=== PATIENT | male | born 1995 | race Asian ===

== ENCOUNTER 2016-05-10 20:35 | Emergency (ER) | payer OTHER ==
[~2016-05-10] VITALS: Ht 177.8 cm; Wt 83.8 kg
[2016-05-10 20:47] VITALS: Ht 177.8 cm; Wt 83.8 kg
[2016-05-10] MEDS ORDERED: SODIUM CHLORIDE 0.9% 1000ML 2,000 ML IV STA (21:29)
[2016-05-10] MEDS ORDERED: KETOROLAC TROMETHAMINE 30 MG/ML VIAL IV STA (21:29)
[2016-05-10] MEDS ORDERED: DiphenhydrAMINE HCL 50 MG/ML VIAL IV STA (21:29)
[2016-05-10] MEDS ORDERED: ACETAMINOPHEN 500 MG TAB PO STA (21:29)
[2016-05-10] MEDS ORDERED: METOCLOPRAMIDE HCL INJ 5 MG/ML 2 ML VIAL IV STA (21:29)
[2016-05-10] MEDS ORDERED: OSELTAMIVIR PHOSPHATE 75 MG CAP PO STA (21:52)
[2016-05-10 21:59] LABS: BASO % 0.1 %; BASO ABS # 0.01 K/uL (0-0.2); COMPLETE YES; EOS % 0.3 %; HEMATOCRIT 47.9 % (42-52); IG% 0.1 %; LYMPH % 9.7 %; LYMPH ABS # 0.69 K/uL (1.2-3.4); MEAN CORPUSCULAR HEMOGLOBIN 27.1 pg (25-34); MEAN CORPUSCULAR HGB CONC 34.2 g/dl (32-36); MONO % 10.6 %; NEUT % 79.2 %; PLATELET COUNT 162 K/uL (130-400); RED BLOOD COUNT 6.06 M/uL (4.7-6.1); WHITE BLOOD COUNT 7.08 K/uL (4.8-10.8)
[2016-05-10 22:15] LABS: BUN/CREATININE RATIO 9.3 (10-20); CALCIUM 9.4 mg/dl (8.5-10.1); CREATININE 1.2 mg/dl (0.60-1.40); POTASSIUM 3.6 mmol/L (3.5-5.1)
[2016-05-10] MEDS ORDERED: OSEL75CA12 PO (22:28)
[2016-05-10] MEDS ORDERED: ALBUTEROL HFA 8 GM INHALER INH STA (22:33)
[2016-05-10 22:52] VITALS: BP 127/64; PULSE 108; TEMP 37.4; O2SAT 97
--- NOTE | 2016-05-11 05:10 | EMERGENCY ROOM VISIT NOTE ---
History First contact with patient: 21:24 Chief Complaint: FEVER Stated Complaint: FEVER History of Present Illness The patient is a 20 year old male who presents to the Emergency Room with complaints of Fever, chills, myalgias, arthralgias for the past day. Patient denies chest pain, dyspnea, abdominal pain, neck stiffness, sore throat, abdominal pain, vomiting, diarrhea. He is tolerating by mouth fluids but has a decreased appetite. No flu shot. No cold medicines today. Review of Systems See HPI for pertinent positives & negatives. A total of 10 systems reviewed and were otherwise negative. Past Medical/Surgical History None Social History Smoking Status: Never Smoker Smokeless Tobacco Use: No Alcohol Use: none Drug Use: none Occupation Status: [employer] student Current/Historical Medications Scheduled Oseltamivir (Tamiflu), 75 MG PO BID Allergies Coded Allergies: No Known Allergies (Unverified , 05/10/16) Physical Exam Vital Signs Date Time Temp Pulse Resp B/P Pulse Ox O2 Delivery O2 Flow Rate FiO2 05/10/16 22:52 37.4 108 18 127/64 97 05/10/16 20:47 39.4 122 18 143/80 96 Room Air Pain Rating (0-10): 0 Physical Exam VITALS: Vitals are noted on the nurse's note and reviewed by myself. Vital signs febrile GENERAL: Pleasant male, in no acute distress, nondiaphoretic, well-developed well-nourished. SKIN: The skin was without rashes, erythema, edema, or bruising. There is no tenting of the skin. Capillary reflex less than 2 seconds. HEAD: Normocephalic atraumatic. EARS: External auditory canals clear, tympanic membranes pearly simms without erythema or effusion bilaterally. EYES: Pupils equal round and reactive to light and accommodation. Conjunctivae without injection, sclerae without icterus. Extraocular movements intact. NOSE: Patent, turbinates without inflammation or discharge. No sinus tenderness. MOUTH: Mucous membranes mildly dry Pharynx without erythema or exudate. Uvula midline. Airway patent. Tongue does not deviate. NECK: Supple without nuchal rigidity. No lymphadenopathy. No thyromegaly. Cervical spine is nontender. No JVD. No meningeal signs HEART: Regular rate and rhythm without murmurs gallops or rubs. LUNGS: Clear to auscultation bilaterally without wheezes, rales or rhonchi. No dullness to percussion. No retractions or accessory muscle use. ABDOMEN: Positive bowel sounds x 4. Normal tympanic percussion. Soft, nontender, without masses or organomegaly. Quan sign negative. No guarding or rebound tenderness. MUSCULOSKELETAL: No muscle atrophy, erythema, or edema noted. NEURO: Patient was alert and oriented to person place and time. Normal sensation to light and sharp touch. No focal neurological deficits. Medical Decision & Procedures Laboratory Results 05/10/16 21:50 Red Blood Count 6.06, Mean Corpuscular Volume 79.0, Mean Corpuscular Hemoglobin 27.1, Mean Corpuscular Hemoglobin Concent 34.2, Mean Platelet Volume 10.0, Neutrophils (%) (Auto) 79.2, Lymphocytes (%) (Auto) 9.7, Monocytes (%) (Auto) 10.6, Eosinophils (%) (Auto) 0.3, Basophils (%) (Auto) 0.1, Neutrophils # (Auto ) 5.60, Lymphocytes # (Auto) 0.69, Monocytes # (Auto) 0.75, Eosinophils # (Auto ) 0.02, Basophils # (Auto) 0.01 05/10/16 21:50 Test 05/10/16 21:00 05/10/16 21:50 Influenza Type A Antigen POS for Influ A (NEG) Influenza Type B Antigen Neg for Influ B (NEG) White Blood Count 7.08 K/uL (4.8-10.8) Red Blood Count 6.06 M/uL (4.7-6.1) Hemoglobin 16.4 g/dL (14.0-18.0) Hematocrit 47.9 % (42-52) Mean Corpuscular Volume 79.0 fL (80-100) Mean Corpuscular Hemoglobin 27.1 pg (25-34) Mean Corpuscular Hemoglobin Concent 34.2 g/dl (32-36) Platelet Count 162 K/uL (130-400) Mean Platelet Volume 10.0 fL (7.4-10.4) Neutrophils (%) (Auto) 79.2 % Lymphocytes (%) (Auto) 9.7 % Monocytes (%) (Auto) 10.6 % Eosinophils (%) (Auto) 0.3 % Basophils (%) (Auto) 0.1 % Neutrophils # (Auto) 5.60 K/uL (1.4-6.5) Lymphocytes # (Auto) 0.69 K/uL (1.2-3.4) Monocytes # (Auto) 0.75 K/uL (0.11-0.59) Eosinophils # (Auto) 0.02 K/uL (0-0.5) Basophils # (Auto) 0.01 K/uL (0-0.2) RDW Standard Deviation 37.9 fL (36.4-46.3) RDW Coefficient of Variation 13.2 % (11.5-14.5) Immature Granulocyte % (Auto) 0.1 % Immature Granulocyte # (Auto) 0.01 K/uL (0.00-0.02) Anion Gap 13.0 mmol/L (3-11) Est Creatinine Clear Calc Drug Dose 102.2 ml/min Estimated GFR () 101.0 Estimated GFR (Non- 87.1 BUN/Creatinine Ratio 9.3 (10-20) Calcium Level 9.4 mg/dl (8.5-10.1) Medications Administered Medications (Trade) Dose Ordered Sig/Henry Route Start Time Stop Time Status Last Admin Dose Admin Ketorolac Tromethamine (Toradol Inj) 30 mg NOW STAT IV 05/10/16 21:29 05/10/16 21:31 DC 05/10/16 21:53 30 MG Acetaminophen (Tylenol Tab) 1,000 mg NOW STAT PO 05/10/16 21:29 05/10/16 21:31 DC 05/10/16 21:53 1,000 MG Diphenhydramine HCl (Benadryl Inj) 25 mg NOW STAT IV 05/10/16 21:29 05/10/16 21:31 DC 05/10/16 21:52 25 MG Metoclopramide HCl 10 mg 10 mg NOW STAT IV 05/10/16 21:29 05/10/16 21:31 DC 05/10/16 21:53 10 MG Sodium Chloride (Nss 1000ml) 2,000 ml @ 999 mls/hr Q2H1M STAT IV 05/10/16 21:29 05/10/16 23:29 DC 05/10/16 21:52 999 MLS/HR Oseltamivir Phosphate (Tamiflu Cap) 150 mg NOW STAT PO 05/10/16 21:52 05/10/16 21:54 DC 05/10/16 22:51 150 MG Albuterol (Ventolin Hfa Inhaler) 2 puffs ONE STAT INH 05/10/16 22:33 05/10/16 22:34 DC 05/10/16 22:51 2 PUFFS ED Course Prior records/ancillary studies reviewed. Triage Nursing notes reviewed. The patient's history was concerning for fever. Differential diagnosis: Etiologies such as viral syndrome, otitis, pharyngitis, pneumonia, influenza, meningitis, urinary tract infection, sepsis, bacteremia, as well as others were entertained. Physical examination: Patient was alert, interactive with no meningeal signs ER treatment provided: Tylenol, Motrin, fluids On reassessment the patient felt better. Diagnostics interpreted by me: The labs revealed positive influenza A This appears to be consistent with influenza. Patient no signs of meningitis. He was well-appearing. He felt much better to be medicated as above. He was advised to take all medicines as directed and to follow-up health services in a few days here in the ER sooner for high fevers, neck stiffness, vomiting, worsening signs or symptoms or as needed. By the evaluation outlined above emergent etiologies such as otitis, pharyngitis, pneumonia, meningitis, urinary tract infection, sepsis, bacteremia, as well as others were deemed relatively unlikely. The pt informed about the findings as listed above. All questions were answered and pleased with the treatment. Return instructions were outlined and the patient was discharged in stable condition. Outpatient prescription management: Tamiflu Referral: The patient was referred back to their primary care physician for follow-up in 2 to 3 days for a recheck of the current condition. Medical Decision As above Impression Primary Impression: Influenza A Departure Information Dispostion Home / Self-Care Condition GOOD Prescriptions Oseltamivir (Tamiflu) 75 Mg Cap 75 MG PO BID for 4 Days, #8 CAP Prov: Leela Reyes .RADHA 05/10/16 Referrals No Doctor, Assigned [facility] (PCP) Forms HOME CARE DOCUMENTATION FORM, School Instructions, Return To School: 3 days IMPORTANT VISIT INFORMATION Patient Instructions Fever - [facility], [facility], Rapid Influenza Antigen Nasal or Throat Swab Additional Instructions Tamiflu 75 m tablet twice a day for 5 days.Any medication can cause an allergic reaction, stop the pills immediately and return to the ER for rash, hives, breathing difficulties, or swelling. Acetaminophen(Tylenol) may be used for fever or pain. Use 1000mg every six hours as needed. Avoid using more than 3000mg in a 24 hour period. (AND/OR) Ibuprofen(Motrin, Advil) may be used for fever or pain. Use 600mg every six hours as needed. Take with food. Avoid using more than 2400mg in a 24 hour period. Do not use 2400mg per day for more than three consecutive days without physician direction. Prolonged inappropriate use can lead to stomach upset or ulcers. Afrin nasal spray: 2-3 sprays to each nostril twice daily as needed for congestion. Do not use for more than 3-4 days because it can lead to worsening rebound congestion. Pseudoephedrine(Sudaphed): 30-60mg every 6 hours as needed for nasal congestion. Do not take this with other stimulant products or supplements. Albuterol Inhaler: Take 2 puffs four times daily for seven days, then as needed. Rest and drink plenty of fluids. Controlling your fever with Tylenol and Ibuprofen as above will make you feel better. Wash your hands after nose blowing, sneezing, or coughing. Most germs are spread through contact, therefore improper hygiene may result in your close contacts and loved ones becoming ill just like you. Continue current medications. Return to the ER for severe headache, neck stiffness, chest pain, difficulty breathing, fevers, vomiting, worsening of your condition, or as needed. Follow up with your primary physician this week for a recheck of your current condition. School Instructions Return To School: 3 days
== END 2016-05-10 22:52 | disposition home or self-care (01) ==
LOC: C.EDB 20:39 → C.EDC 22:52
DX: J09.X2 Influenza due to identified novel influenza A virus with other respiratory manifestations (principal)